=== PATIENT | male | born 1985 | race Caucasian/White ===

== ENCOUNTER 2020-12-03 17:56 | Inpatient (IN) | payer MEDICAID, SELFPAY ==
[~2020-12-03] VITALS: Ht 172.7 cm; Wt 94.3 kg
[2020-12-03 18:45] VITALS: BP_SYST 144
--- NOTE | 2020-12-03 19:00 | NUR ---
Placed in room 1 . Placed on hall monitor, blood pressure machine and pulse oximeter. To gown for exam. Side rails up.
--- NOTE | 2020-12-03 19:29 | NUR ---
Care of patient endorsed to JAZMIN Glass. Pt currently in CT.
--- NOTE | 2020-12-03 19:30 | NUR ---
Pt BIB ALS c/o witnessed tonic clonic seizure lasting approx min. Pt has a hx of seizures. Pt is postictal, +excessive oral secretions. Pt suctioned.
[2020-12-03 19:43] LABS: BASOPHILS # (AUTO) 0.1 K/uL (0.0-0.2); BASOPHILS % (AUTO) 0.9 % (0.0-2.0); EOSINOPHILS # (AUTO) 0.2 K/uL (0.0-0.4); EOSINOPHILS % (AUTO) 2.7 % (0.0-4.0); HEMATOCRIT 42.9 % (36-54); HEMOGLOBIN 14.3 g/dL (14.0-18.0); LYMPHOCYTES # (AUTO) 2.1 K/uL (1.0-5.5); LYMPHOCYTES % (AUTO) 23.4 % (20.5-51.5); MEAN CORPUSCULAR HEMOGLOBIN 29 pg (27-31); MEAN CORPUSCULAR HGB CONC 33 % (32-36); MEAN CORPUSCULAR VOLUME 87 fL (79.0-98.0); MONOCYTES # (AUTO) 0.6 K/uL (0.0-1.0); MONOCYTES % (AUTO) 7.2 % (1.7-9.3); NEUTROPHILS # (AUTO) 5.9 K/uL (1.8-7.7); NEUTROPHILS % (AUTO) 65.8 % (40.0-70.0); PLATELET COUNT (AUTO) 291 K/uL (130-430); RED BLOOD CELL COUNT(AUTO) 4.91 MIL/uL (4.2-6.2); RED CELL DISTRIBUTION WIDTH 14.1 % (9.0-15.0)
[2020-12-03 19:50] LABS: ANION GAP 9 (5-15); CALCIUM 8.9 mg/dL (8.4-11.0); CHLORIDE 103 mmol/L (98-107); CREATININE 0.66 mg/dL (0.55-1.30); GLUCOSE 111 mg/dL (70-99); POTASSIUM 3.6 mmol/L (3.5-5.1); SODIUM SERUM 137 mmol/L (136-145); UREA NITROGEN, BLOOD 10 mg/dL (8-21)
[2020-12-03 19:51] LABS: GFR AFRICAN AMERICAN 178 mL/min (>90)
[2020-12-03 19:56] LABS: ALANINE AMINOTRANSFERASE 27 U/L (12-78); ALBUMIN 3.4 g/dL (3.4-4.8); ASPARTATE AMINOTRANSFERASE 12 U/L (10-37); TOTAL BILIRUBIN 0.2 mg/dL (0.0-1.0)
[2020-12-03 20:00] LABS: ALCOHOL, BLOOD < 3 mg/dL (<10)
[2020-12-03 20:47] LABS: BARBITURATE, URINE NEGATIVE (NEG <=200); BENZODIAZEPINE, URINE NEGATIVE (NEG <=150); CANNABINOID, URINE NEGATIVE (NEG <=50); COCAINE, URINE NEGATIVE (NEG <=150); METHAMPHETAMINES SCREEN,URINE NEGATIVE (NEG <=500); URINE AMPHETAMINE NEGATIVE (NEG <=500); URINE METHADONE NEGATIVE (NEG <=200)
[2020-12-03 20:48] LABS: OPIATE, URINE NEGATIVE (NEG <=100); PHENCYCLIDINE SCREEN,URINE NEGATIVE (NEG <=25); UR TRICYCLIC ANTIDEPRESSANTS NEGATIVE (NEG <=300); URINE OXYCODONE SCREEN NEGATIVE (NEG <=100); URINE PROPOXYPHENE SCREEN NEGATIVE (NEG <=300)
--- NOTE | 2020-12-03 21:30 | NUR ---
Patient will be admitted to care of DR. PEARCE. Admitted to TELE unit. Belongings list completed. Complete and up to date summary report printed. SBAR report to be given at bedside with opportunity for questions.
[2020-12-03] MEDS ORDERED: levETIRAcetam 1,000 MG IV BAG 100 ML IV SCH (21:45)
--- NOTE | 2020-12-03 21:45 | NUR ---
Patient's code status is FULL CODE paperwork completed and placed in chart.
--- NOTE | 2020-12-03 22:00 | NUR ---
Pt climbing out of gurney, crawling on floor, ripping clothes off, incomprehensible speech. Dr. Darin lopes.
[2020-12-03] MEDS ORDERED: LORazepam 2 MG/ML VIAL IVP ONE (22:15)
[2020-12-03] MEDS: KCL 20 mEq in D5/0.45NS 1000mL 1,000 ML IV SCH (22:58)
--- NOTE | 2020-12-03 23:00 | NUR ---
Pt lying in bed, speaking in clear, complete sentences, a/o x 3-4. Pt apologizing for behavior and asking for food.
--- NOTE | 2020-12-03 23:06 | NUR ---
Pt taken to radiology
--- NOTE | 2020-12-03 23:15 | NUR ---
Pt back from CT
--- NOTE | 2020-12-04 | NUR ---
Medication reconciliation UNABLE TO BE completed 2/2 PT CONDITION
--- NOTE | 2020-12-04 | NUR ---
[facility] Licensed nurse present. IV present no signs or symptoms of infiltration. Report given to bedside RN
--- NOTE | 2020-12-04 00:17 | NUR ---
ADMIT NOTE Received pt from ER to the floor with a diagnosis of ALOC, Sz. Admission process initiated. patient oriented to pain management, safety and call light-teach back done.
[2020-12-04 00:34] VITALS: BP_SYST 131
--- NOTE | 2020-12-04 00:45 | NUR ---
initial note patient is laying in bed. no s/s of respiratory distress noted. call light in reach. patient unsuccessfully demonstrates usage of call light. bed is locked, alarmed, and at the lowest position. per er nurse dr. vieira stated to continue restraints on the floor. will notify family. fall, safety, aspiration, and respiratory precautions will be in place throughout the shift. plan of care is discussed with patient.
--- NOTE | 2020-12-04 01:08 | NUR ---
first attempt to call family. no answer will call again
--- NOTE | 2020-12-04 02:41 | NUR ---
2nd attempt to call family left a message.
[2020-12-04] MEDS ORDERED: TEMA7.5C PO (02:56)
--- NOTE | 2020-12-04 03:04 | NUR ---
communicated with family ronal adams. educated on family on restraints. medication update. family stated one medication and will find the rest in the morning. family stated the son killed the dog 2 months ago.
--- NOTE | 2020-12-04 03:14 | NUR ---
CONSULTATION PAGED/CALLED Reason for Consultation: SEIZURE DISORDER Person Who was Notified: DR OZUNA TEXT Consulting Physician: DR OZUNA Entomology Teacher Specialty: [ Ordering Physician: PORTIA
[2020-12-04 07:15] LABS: BASOPHILS % (AUTO) 0.6 % (0.0-2.0); EOSINOPHILS # (AUTO) 0.2 K/uL (0.0-0.4); EOSINOPHILS % (AUTO) 2.9 % (0.0-4.0); HEMATOCRIT 39.6 % (36-54); HEMOGLOBIN 13.2 g/dL (14.0-18.0); LYMPHOCYTES # (AUTO) 2.6 K/uL (1.0-5.5); LYMPHOCYTES % (AUTO) 33.1 % (20.5-51.5); MEAN CORPUSCULAR HEMOGLOBIN 29 pg (27-31); MEAN CORPUSCULAR HGB CONC 33 % (32-36); MEAN CORPUSCULAR VOLUME 87 fL (79.0-98.0); MONOCYTES # (AUTO) 0.5 K/uL (0.0-1.0); MONOCYTES % (AUTO) 6.2 % (1.7-9.3); NEUTROPHILS # (AUTO) 4.5 K/uL (1.8-7.7); NEUTROPHILS % (AUTO) 57.2 % (40.0-70.0); PLATELET COUNT (AUTO) 255 K/uL (130-430); RED BLOOD CELL COUNT(AUTO) 4.58 MIL/uL (4.2-6.2); RED CELL DISTRIBUTION WIDTH 13.9 % (9.0-15.0); WHITE BLOOD COUNT (AUTO) 7.9 K/uL (4.8-10.8)
[2020-12-04 07:18] LABS: CALCIUM 8.4 mg/dL (8.4-11.0); CREATININE 0.79 mg/dL (0.55-1.30); POTASSIUM 3.7 mmol/L (3.5-5.1)
--- NOTE | 2020-12-04 07:48 | NUR ---
closing note patient is laying in bed. no s/s of respiratory distress noted. call light in reach. bed is locked, alarmed, and at the lowest position. fall, safety, aspiration, and respiratory precautions has been in place throughout the shift. no seizures during shift. restraint protocol place throughout the shift. sbar report endorsed to am nurse.
[2020-12-04 08:00] VITALS: BP_SYST 110
--- NOTE | 2020-12-04 08:00 | NUR ---
OPENING NOTES ASLEEP IN BED. REFUSED TO ANSWER ORIENTATION QUESTIONS AT THIS TIME. NO SIGN OF SHORTNESS OF BREATH OR PAIN. ON BILATERAL SOFT WRIST RESTRAINTS RELEASED AND RE-APPLIED DUE TO RESTLESSNESS AND HISTORY OF HARM TO SELF. DISCUSSED PLAN OF CARE TO PATIENT. IV FLUIDS INFUSING WELL. SAFETY CHECK DONE. SEIZURE PRECAUTIONS IN PLACE. CALL LIGHT WITHIN REACH. WILL CLOSELY MONITOR.
[2020-12-04] MEDS ORDERED: levETIRAcetam 500 MG TABLET PO SCH (09:00)
--- NOTE | 2020-12-04 11:00 | NUR ---
ROUNDS RESTING. IV FLUIDS STILL INFUSING WELL. NO SIGN OF DISTRESS. SAFETY CHECKS AND SEIZURE PRECAUTIONS IN PLACE. WILL MONITOR.
[2020-12-04] MEDS: KCL 20 mEq in D5/0.45NS 1000mL 1,000 ML IV SCH ×2 (11:27→21:30)
[2020-12-04 12:05] VITALS: BP_SYST 114
--- NOTE | 2020-12-04 14:00 | NUR ---
FAMILY UPDATED WAS ABLE TO TALK TO PATIENT'S MOTHER AND UPDATED HER WITH PLAN OF CARE AND CURRENT PATIENT STATUS. SAFETY CHECKS DONE. WILL MONITOR.
[2020-12-04] MEDS ORDERED: DIVALPROEX SODIUM 500 MG TABLET( DEPAKOTE) PO ONE (15:00)
--- NOTE | 2020-12-04 15:00 | NUR ---
ROUNDS SEEN AND EXAMINED BY DR. KATE. WAS ALSO ABLE TO TALK TO MOTHER AND UPDATE HER WITH PLAN OF CARE.
[2020-12-04] MEDS ORDERED: RISP1TAB7 PO (15:16)
--- NOTE | 2020-12-04 15:30 | NUR ---
MD ROUNDS SEEN AND EXAMINED BY DR. SALTER. REVIEWED HOME MEDICATIONS AND CONTINUED THEM.
[2020-12-04 16:05] VITALS: BP_SYST 126
--- NOTE | 2020-12-04 17:26 | NUR ---
CONSULTATION PAGED/CALLED Reason for Consultation: [] BIZARRE BEHAVIOR Person Who was Notified: [] DR JAYE WANG Consulting Physician: [] DR JAYE WANG Production Graphic Designer Specialty: [] PSYCH Ordering Physician: [] DR YANEZ
[2020-12-04 20:00] VITALS: BP_SYST 126
[2020-12-04] MEDS ORDERED: TEMAZEPAM 7.5 MG CAPSULE PO SCH (21:00)
[2020-12-04] MEDS: risperiDONE 1 MG TABLET (RisperDAL) PO SCH (21:27)
[2020-12-04] MEDS: ENOXAPARIN SODIUM 40 MG/0.4 ML SYRINGE SUBCUT SCH (21:28)
[2020-12-04] MEDS: DIVALPROEX SODIUM 500 MG TABLET( DEPAKOTE) PO SCH (21:28)
[2020-12-05 00:47] VITALS: BP_SYST 123
--- NOTE | 2020-12-05 06:49 | NUR ---
PT IS AWAKE AND LYING COMFORTABLY IN BED. ALL PT'S NEEDS WERE ATTENDED TO THIS SHIFT. NO SEIZURE ACTIVITY NOTED. IVF IS INFUSING WELL IN LAC. FALL, SEIZURE AND SAFETY PRECAUTIONS ARE IN PLACE. WILL ENDORSE TO DAY SHIFT NURSE.
[2020-12-05 07:56] LABS: ALBUMIN 3.1 g/dL (3.4-4.8); CALCIUM 8.8 mg/dL (8.4-11.0); CREATININE 0.75 mg/dL (0.55-1.30); POTASSIUM 4.1 mmol/L (3.5-5.1); TOTAL BILIRUBIN 0.2 mg/dL (0.0-1.0)
[2020-12-05 08:30] VITALS: BP_SYST 110
[2020-12-05 08:40] LABS: BASOPHILS % (AUTO) 0.5 % (0.0-2.0); EOSINOPHILS # (AUTO) 0.3 K/uL (0.0-0.4); HEMATOCRIT 41.4 % (36-54); HEMOGLOBIN 13.6 g/dL (14.0-18.0); LYMPHOCYTES # (AUTO) 2.9 K/uL (1.0-5.5); LYMPHOCYTES % (AUTO) 38.6 % (20.5-51.5); MEAN CORPUSCULAR HEMOGLOBIN 29 pg (27-31); MEAN CORPUSCULAR HGB CONC 33 % (32-36); MEAN CORPUSCULAR VOLUME 87 fL (79.0-98.0); MONOCYTES # (AUTO) 0.4 K/uL (0.0-1.0); MONOCYTES % (AUTO) 5.7 % (1.7-9.3); NEUTROPHILS # (AUTO) 3.9 K/uL (1.8-7.7); NEUTROPHILS % (AUTO) 51.2 % (40.0-70.0); PLATELET COUNT (AUTO) 263 K/uL (130-430); RED BLOOD CELL COUNT(AUTO) 4.75 MIL/uL (4.2-6.2); RED CELL DISTRIBUTION WIDTH 14.1 % (9.0-15.0); WHITE BLOOD COUNT (AUTO) 7.6 K/uL (4.8-10.8)
--- NOTE | 2020-12-05 09:59 | NUR ---
Nutrition Update Arnaldo Scale 18 noted. Pt admitted for ALOC, seizure. Diet: regular BMI: 31.6 kg/m2 RD to follow per nutrition care standards.
[2020-12-05] MEDS: risperiDONE 1 MG TABLET (RisperDAL) PO SCH ×2 (10:18→21:57)
[2020-12-05] MEDS: DIVALPROEX SODIUM 500 MG TABLET( DEPAKOTE) PO SCH ×2 (10:20→21:56)
[2020-12-05] MEDS: KCL 20 mEq in D5/0.45NS 1000mL 1,000 ML IV SCH ×2 (10:23→23:45)
[2020-12-05 12:03] VITALS: BP_SYST 126
[2020-12-05] MEDS: LORazepam 2 MG/ML VIAL IM PRN ×2 (15:02→23:20)
[2020-12-05 15:15] VITALS: BP_SYST 141
--- NOTE | 2020-12-05 15:21 | NUR ---
PSYCH MD FILLING OPERATOR DR VERA WAS CALLED, RE: PT IS VIOLENT AND VERY AGGRESSIVE, AGITATED. SPOKE TO SHANTI.
[2020-12-05] MEDS ORDERED: DIPHENHYDRAMINE INJ 50 MG/ML VIAL IM ONE (15:30)
[2020-12-05] MEDS ORDERED: HALOPERIDOL LACTATE 5 MG/ML VIAL IM ONE (15:30)
--- NOTE | 2020-12-05 15:34 | NUR ---
HIGH ALERT NOTE: Called Dr. TREVINO back at [phone] identified within the medical roster to verify physician authenticity.
[2020-12-05 16:30] VITALS: BP_SYST 122
--- NOTE | 2020-12-05 17:28 | NUR ---
At 1455 patient became restless. he removed b/l wrist restrains and said he wanted to go home. Oriented patient again about the plans of care, but patient got more and more agitated and ran out of the building to smoke. Security called and psych MD called at 1515. 1 gram of Ativan IM was given at 1505, but patient was still restless and saying he wanted to go out to smoke. Patient appeared more like having seizure with stiff jaws and rigid movement. Rapid response called, but then it was canceled because patient became stable. Seizure precautions were in place and patient did not have any injury. vital signs were stable, BP 141/75, HR 108, o2 saturation 99% on room air. patient said that his tongue was swollen and he spit out saliva. suction via yanker applied a few times. Patient was still restless, MD called back and ordered Benadryl 50mg IM and Haldol 5 mg IM. Patient said that he was allergic to Haldol. Patient's mother, Ericka called and said that patient is not allergic to Haldol. train brake operatorAntionette was aware of the whole situation. medications given to patient and slowly patient calmed down. Rechecked BPs and they were 122/84, HR 80. Patient said he was hungry. snacks and juice given to patient. Patient resting in bed with soft restrain on b/l wrists. call light within reach. will continue to monitor patient.
--- NOTE | 2020-12-05 19:40 | NUR ---
Patient resting in bed quietly. call light within reach. bed in low position, sitter at bedside. Endorsed patient care to medical claims manager RNKathleen.
--- NOTE | 2020-12-05 19:50 | NUR ---
TWO IV LINES STARTED IN LEFT WRIST AND RFA WITH ANGIOCATH 20G. IV IN LEFT WRIST WAS SALINE LOCKED AND IVF OF D5 1/2NS W/ 20MEQ KCL WAS RESUMED IN RFA AT 100ML/HR. BILATERAL SOFT WRIST RESTRAINTS ARE ON AND NO CIRCULATORY IMPAIRMENT NOTED. SITTER IS AT THE BEDSIDE.
[2020-12-05 20:00] VITALS: BP_SYST 125
--- NOTE | 2020-12-05 21:05 | NUR ---
PER DIRECT OBSERVER, PT GOT UP ON HIS BED AFTER BREAKING BILATERAL SOFT WRIST RESTRAINTS OFF HIS WRISTS. PT STOOD UP ON HIS BED AND JUMPED UP, THEREBY REACHING THE SPRINKLER ON THE CEILING. PT LATCHED ONTO THE SPRINKLER WITH BOTH HANDS WHILE IVF WAS STILL INFUSING INTO HIS RFA. DIRECT OBSERVER STATED THE INCIDENT HAPPENED SO FAST, LIKE WITHIN SECONDS. PT'S PRIMARY RN WAS RESTARTING IV LINE IN A COVID ROOM. COMMERCIAL BAKING TEACHER AND SECURITY WERE CALLED. PT WAS ASSISTED BACK TO LYING POSITION ON HIS BED BY 2 NURSING ASSISTANTS WHILE SECURITY AND COMMERCIAL BAKING TEACHER WAITED OUTSIDE PT'S ROOM. NEW BILATERAL SOFT WRIST RESTRAINTS WERE APPLIED TO PT'S WRISTS. PT WAS NOT COMBATIVE.
[2020-12-05] MEDS: ENOXAPARIN SODIUM 40 MG/0.4 ML SYRINGE SUBCUT SCH (21:58)
--- NOTE | 2020-12-05 23:20 | NUR ---
PT APPEARS TO BE HAVING SEIZURES WITH HIS EYES ROLLING FROM SIDE TO SIDE. PT THEN HAD A BLANK STARE AND WOULD NOT ANSWER ANY QUESTIONS. ATIVAN 1MG GIVEN IM. SIDE RAILS REMAIN PADDED AND SITTER IS AT THE BEDSIDE. Addendum: 12/06/20 at 0120 by Kathleen Tavarez RN OXYGEN SATURATION ON ROOM AIR 99%.
[2020-12-05] MEDS ORDERED: BENZ1TAB8 PO (23:47)
[2020-12-05] MEDS ORDERED: LEVE500T9 PO (23:47)
[2020-12-05] MEDS ORDERED: VIS25 PO (23:47)
[2020-12-05] MEDS ORDERED: SERT-131 PO (23:47)
[2020-12-06 03:12] VITALS: BP_SYST 135
[2020-12-06] MEDS: KCL 20 mEq in D5/0.45NS 1000mL 1,000 ML IV SCH ×2 (03:56→14:16)
--- NOTE | 2020-12-06 06:43 | NUR ---
PT IS SLEEPING COMFORTABLY IN BED. DIRECT OBSERVER IS AT THE BEDSIDE. ALL PT'S NEEDS WERE ATTENDED TO THIS SHIFT. NO FURTHER SEIZURE ACTIVITY NOTED. IVF IS INFUSING WELL IN RFA WITHOUT ANY SIGNS OF INFILTRATION. FALL, SEIZURE AND SAFETY PRECAUTIONS ARE IN PLACE. WILL ENDORSE TO DAY SHIFT NURSE.
[2020-12-06 08:15] VITALS: BP_SYST 127
[2020-12-06] MEDS: DIVALPROEX SODIUM 500 MG TABLET( DEPAKOTE) PO SCH ×2 (08:15→20:13)
--- NOTE | 2020-12-06 08:15 | NUR ---
Opening note/Called pharmacy patient resting in bed, a/ox2, reoriented to place, time and event, denies pain, IV lines are patent and infusing well, restraints in place, no signs of injury or skin breakdown, educated patient on plan of care and call light system, he verbalized understanding at this time, continuing to monitor, sitter at bedside, bed in lowest position, three side rails up, bed alarm on, bed close to nursing station, fall, aspiration and seizure precautions in place. Called pharmacy - Risperdal not available in [place] - pharmacy to fill - will follow up. Addendum: 12/06/20 at 1009 by Nino Davis RN Called pharmacy - Risperdal not available in [place] - pharmacy to fill - will follow up.
[2020-12-06] MEDS: risperiDONE 1 MG TABLET (RisperDAL) PO SCH ×2 (11:26→20:13)
--- NOTE | 2020-12-06 11:26 | NUR ---
Risperdal administered late due to pharmacy not being able to dispense the medication, administered now for 0900 dose. Patient tolerated well.
[2020-12-06 11:46] VITALS: BP_SYST 117
--- NOTE | 2020-12-06 13:04 | NUR ---
RN rounds patient resting in bed, resting for most of the day so far, awake for meals at times, restraints in place, no signs of injury or skin breakdown, continuing to monitor, sitter at bedside, bed in lowest position, three side rails up, bed alarm on, bed close to nursing station, fall, aspiration, and seizure precautions in place.
--- NOTE | 2020-12-06 14:00 | NUR ---
Dr. Walter gomes assessed patient - orders received for restraint renewal and consult follow up with Psych, will follow up. Addendum: 12/06/20 at 1430 by Nino Davis RN Informed MD regarding new medications [facility].
--- NOTE | 2020-12-06 14:23 | NUR ---
F/U ON PSYCH CONSULT PSYCHOSIS DR MUIR,SAID [phone] S/W [place] OFFICE
[2020-12-06 15:30] VITALS: BP_SYST 114
[2020-12-06] MEDS: LORazepam 2 MG/ML VIAL IM PRN ×2 (16:48→21:31)
--- NOTE | 2020-12-06 16:50 | NUR ---
Paged Dr. Watson regarding PRN orders.
--- NOTE | 2020-12-06 18:33 | NUR ---
Closing note patient resting in bed, resting, bilateral soft wrist restraints in place, no signs of injury or skin breakdown, patient has been cooperative thus far, all needs met, will endorse report to NOC shift nurse, bed in lowest position, three side rails up, bed alarm on, bed close to nursing station, call light within reach, sitter at bedside, fall, aspiration and seizure precautions in place.
--- NOTE | 2020-12-06 19:20 | NUR ---
initial notes: pt is on bed, resting. ariel up and call for assistance to the bathroom. pt get out of bed, walks to bathroom with steady gait, stable. no sing of pain, not distress. pt stated he wants to smoke, remind pt that he's in the hospital.pt go back to bed, bilateral restrain reapplied, pt remain calm, needs attended, safety precaution in place. bed alarm on. low bed position and alarm. will watch pt at bedside as sitter.
[2020-12-06 19:30] VITALS: BP_SYST 128
[2020-12-06] MEDS: ENOXAPARIN SODIUM 40 MG/0.4 ML SYRINGE SUBCUT SCH (20:14)
--- NOTE | 2020-12-06 21:19 | NUR ---
pt stated that his gonna have seizure again, stable vital sign. safety precaution in place. will medicate pt.
--- NOTE | 2020-12-06 23:19 | NUR ---
pt is resting quietly, sometimes wakes up and talk to his self. stable. no seizure activity. will monitor as sitter.
[2020-12-06 23:38] VITALS: BP_SYST 124
--- NOTE | 2020-12-07 00:01 | NUR ---
pt accidentally pull out his right forearm iv and the left wrist is occluded, both discontinue, start new iv site to rigght forearm gauge 20- good blood return, done aseptically, pt tolerate well. vss. needs attended
[2020-12-07] MEDS: KCL 20 mEq in D5/0.45NS 1000mL 1,000 ML IV SCH ×2 (03:27→15:20)
--- NOTE | 2020-12-07 03:30 | NUR ---
pt is sleeping, wakes up and able to ambulate to bathroom to void, steady gait. stable
--- NOTE | 2020-12-07 06:27 | NUR ---
closing: pt is resting by now no sign of pain, no sob, ivf infusing to right forearm- no sign of infiltration. stable. needs attended the whole shift. bilateral wrist restrain, no sign of injury. safety precaution in place. bed alarm on. will give sbar reporting to am rn.
--- NOTE | 2020-12-07 08:30 | NUR ---
Opening note patient resting in bed, a/ox3, reoriented to place, time and event, denies pain, IV line is patent and infusing well, restraints in place, no signs of injury or skin breakdown, educated patient on plan of care and call light system, he verbalized understanding at this time, continuing to monitor, sitter at bedside, bed in lowest position, three side rails up, bed alarm on, bed close to nursing station, fall, aspiration and seizure precautions in place.
[2020-12-07 08:49] VITALS: BP_SYST 104
[2020-12-07] MEDS: risperiDONE 1 MG TABLET (RisperDAL) PO SCH ×2 (08:52→20:45)
[2020-12-07] MEDS: DIVALPROEX SODIUM 500 MG TABLET( DEPAKOTE) PO SCH ×2 (08:53→20:45)
[2020-12-07 12:09] VITALS: BP_SYST 104
[2020-12-07 16:00] VITALS: BP_SYST 114
[2020-12-07] MEDS: LORazepam 2 MG/ML VIAL IM PRN ×2 (16:22→20:45)
--- NOTE | 2020-12-07 19:15 | NUR ---
OPENING NOTES: Received patient report from morning shift nurse. Patient in bed, eyes closed, breathing evenly and nonlabored on room air, no s/s of distress, HOB elevated. Patient has an IV on the RFA 20G, patent, benign, and flushing. Patient has bilateral soft wrist restraints. Educated patient on plan of care and call light use. Fall/safety precaution. DO at bedside. Will continue to monitor.
--- NOTE | 2020-12-07 19:18 | NUR ---
Closing note SBAR report given to Prabha WU.
[2020-12-07 20:00] VITALS: BP_SYST 134
[2020-12-07] MEDS: ENOXAPARIN SODIUM 40 MG/0.4 ML SYRINGE SUBCUT SCH (20:46)
--- NOTE | 2020-12-08 | NUR ---
ROUNDS: Patient in bed, eyes closed, breathing evenly and nonlabored on room air, no s/s of distress. Will continue to monitor.
[2020-12-08] MEDS: KCL 20 mEq in D5/0.45NS 1000mL 1,000 ML IV SCH ×2 (00:30→12:13)
[2020-12-08 00:41] VITALS: BP_SYST 110
--- NOTE | 2020-12-08 00:59 | NUR ---
CONSULTATION PAGED/CALLED Reason for Consultation: PHYSCOSIS Person Who was Notified: KOURTNEY Consulting Physician: ROB, DOCTOR SHERRY IS NUTRITION INSTRUCTOR Shrimp Cleaner Specialty: Ordering Physician: PORTIA
--- NOTE | 2020-12-08 06:55 | NUR ---
CLOSING NOTES: Patient in bed, eyes closed, breathing evenly and nonlabored on room air, no s/s of distress, HOB elevated. Patient has an IV on the RFA 20G, patent, benign, and flushing. Patient has bilateral soft wrist restraints. Fall/safety precaution. DO at bedside. Will continue to monitor and endorse care to morning shift rn.
[2020-12-08 07:30] VITALS: BP_SYST 130
--- NOTE | 2020-12-08 08:00 | NUR ---
OPENING NOTES PATIENT ASLEEP AND RESTING, REFUSED TO BE BOTHER. BUT VITALS SIGNS TAKEN BY THE DROSS PULLER ONE TO ONE SITTER. HAS IV ACCESS ON THE RT FOREARM #18. WITH D51/2NS +20KCL AT 100CC/HR INFUSING ON WELL. BED LOW POSITION, CALL LIGHTS WITHIN REACH. BED LOW POSITION, ALARMED AND LOCKED. WILL CONTINUE TO MONITOR PATIENTS STATUS. PATIENT DISCONTINUE RESTRAINT AT THIS TIME. QUITE. NO AGITATION NOTED. PADDED SIDE RAILS ON.
[2020-12-08 11:35] VITALS: BP_SYST 140
[2020-12-08 12:00] VITALS: BP_SYST 136
[2020-12-08] MEDS: DIVALPROEX SODIUM 500 MG TABLET( DEPAKOTE) PO SCH (12:13)
--- NOTE | 2020-12-08 13:00 | NUR ---
DR [facility] AND EVALUATE THE PATIENT. DECREASE RISPERDAL TABLET FROM 5 MG PO TO 3 MG TO START TONITE.
--- NOTE | 2020-12-08 13:44 | NUR ---
patient signed for discharge against medical advice. dr corral made aware. and Mom will pickle sorter the son at 1600pm today.
--- NOTE | 2020-12-08 14:58 | NUR ---
STILL AWAITING FOR THE MOM TO COME AT 1600PM FOR VIDEO PRODUCER.
[2020-12-08] MEDS: LORazepam 2 MG/ML VIAL IM PRN (15:14)
--- NOTE | 2020-12-08 17:00 | NUR ---
PATIENT LEFT VIA WHEELCHAIR IN STABLE CONDITION. CORN BREEDER BY MOM. [facility] I D BAND REMOVED AND IV ACCESS REMOVED. DISCHARGE AGAINST MEDICAL ADVICE, SIGNED BY THE PATIENT, REALLY EAGER TO LEAVE WITHOUT WAITING FOR THE DOCTOR. EXPLAINED THE CONSEQUENCES. DR PEARCE MADE AWARE.
[2020-12-08] MEDS ORDERED: risperiDONE 1 MG TABLET (RisperDAL) PO SCH (21:00)
== END 2020-12-08 17:00 | disposition left against medical advice (07) | DRG 53 ==
LOC: SED 17:56 → STU 21:36
PROVIDERS: ADMIT Family Medicine; ATTEND Family Medicine
DX: G40.909 Epilepsy, unspecified, not intractable, without status epilepticus (principal); G92 Toxic encephalopathy; F22 Delusional disorders; Z20.822 Contact with and (suspected) exposure to COVID-19; F20.9 Schizophrenia, unspecified; F17.210 Nicotine dependence, cigarettes, uncomplicated; F15.90 Other stimulant use, unspecified, uncomplicated; Z79.899 Other long term (current) drug therapy
CPT/HCPCS: 36415; 70450-TC; 76376; 80048; 80053; 80307; 83735; 84443; 85025; 93005; 96365; 96375; 99285; G0378; G0482; J1200; J1630; J1650; J1953; J2060